=== PATIENT | female | born 1970 | race Caucasian/White ===

== ENCOUNTER 2020-04-28 10:51 | Day surgery (SDC) | payer OTHER, SELFPAY ==
[2020-04-24 20:28] VITALS: BMI 31.6
--- NOTE | 2020-04-27 09:23 | HO.ANESPROP2 ---
Documented by User: Korin Palomo 04/27/20 09:24 HPI - Anesthesia Eval Consult details Narrative: 49yo F for Colonoscopy PMFSH Past Medical History Medical History Asthma History of blood transfusion Migraine headache Surgical History Surgical History H/O exploratory laparotomy (2012) Hx of appendectomy (2018) Hx of tonsillectomy Previous back surgery (2013) Previous section (1993) Social History Social History Smoking Status: Never smoker Second Hand Smoke Exposure: No Use of substances other than those prescribed or required for medical reasons: No Advance Directives: No Advance Directives Information Provided: No Advance Directives on File: No Recently lost weight without trying: Unsure Meds Allergies Allergy/AdvReac Type Severity Reaction Status Date / Time cephalexin [From KEFLEX] Allergy Unknown RASH Verified 04/28/20 10:43 Home Medications Medication Instructions Recorded Confirmed Type albuterol sulfate [Ventolin HFA] 2 puff PO QID PRN 04/24/20 04/28/20 History fluticasone propionate [Flonase 2 spray INTRANASAL DAILY 04/24/20 04/24/20 History Allergy Relief] Exam Exam Date and Time: April 27, [id number] Height,Weight and Vital Signs: Height 5 ft 5 in Weight 86.183 kg Assessment and Plan Assessment Anesthesia Assessment: Chart Reviewed Documented by User: Blossom Dougherty 04/28/20 11:43 PMFSH Past Medical History Medical History Asthma History of blood transfusion Migraine headache Family History Family history of problems with anesthesia: No Surgical History Surgical History H/O exploratory laparotomy (2012) Hx of appendectomy (2018) Hx of tonsillectomy Previous back surgery (2013) Previous section (1993) History of Problems with Anesthesia: Yes (Difficulty breathing waking up from one of her surgeries) Social History Social History Smoking Status: Never smoker Second Hand Smoke Exposure: No Use of substances other than those prescribed or required for medical reasons: No Advance Directives: No Advance Directives Information Provided: No Advance Directives on File: No Recently lost weight without trying: Unsure Meds Allergies Allergy/AdvReac Type Severity Reaction Status Date / Time cephalexin [From KEFLEX] Allergy Unknown RASH Verified 04/28/20 10:43 Home Medications Medication Instructions Recorded Confirmed Type albuterol sulfate [Ventolin HFA] 2 puff PO QID PRN 04/24/20 04/28/20 History fluticasone propionate [Flonase 2 spray INTRANASAL DAILY 04/24/20 04/24/20 History Allergy Relief] Exam Height,Weight and Vital Signs: Vital Signs Temp Pulse Resp BP Pulse Ox 04/28/20 11:09 98 F 75 18 109/78 98 Airway Mallampati Class: I TM Dist: >3cm Neck ROM: Full Heart: RRR Lungs: OCC WHEEZE Assessment and Plan Assessment Anesthesia Assessment: Anesthesia Plan Discussed and Chart Reviewed Final Anesthetic Review NPO: Yes ASA Class: II Final Preanesthetic Review: No Changes in Pt Med Stat, Meds/Allgs Chart Reviewed, Consent Obtained/Reviewed and Anes Risks/Benef Reviewed Patient Risk: Low Procedure Risk: Low Anesthetic Plan Anesthetic Plan: MAC: Disposition: Standard PACU
[2020-04-28 11:09] VITALS: BP 109/78; PULSE 75; RESP 18; TEMP 36.6; O2SAT 98
[2020-04-28] MEDS: Lactated Ringers 1,000 ML 100 ML IVCONT (11:28)
[2020-04-28] MEDS: Albuterol Sulfate (0.083%) 2.5 MG/3 ML VIAL.NEB INHALE (11:39)
--- NOTE | 2020-04-28 11:40 | PC.NURSE ---
pt recieving resp tx nad
--- NOTE | 2020-04-28 12:00 | MHC.SHP ---
Pre-Procedural Eval Section A The patient is an INPATIENT: No Changes since office visit: No Cold of Flu in the past 2 weeks, No New Medical Problems, No Changes in Medication and No Patient answered all questions The History & Physical has been completed within 30 days and I have reviewed it.: Yes Section B Chief Complaint: Screening Allergies: Allergies Allergy/AdvReac Type Severity Reaction Status Date / Time cephalexin [From KEFLEX] Allergy Unknown RASH Verified 04/28/20 10:43 Plan Patient has been examined and remains a candidate for the planned procedure
[2020-04-28 12:38] VITALS: BP 96/55; PULSE 80; RESP 12; TEMP 36.2; O2SAT 98
--- NOTE | 2020-04-28 12:41 | PM.OP ---
Brief Operative Note Date of procedure: 04/28/20 Pre-op diagnosis: screening Post-op diagnosis: same (colon polyps) Procedure: colonosocpy Surgeon: Iker Jordan Anesthesia: MAC Estimated blood loss (mL): 2 Pathology: other (polyps x2) Condition: stable Disposition: PACU
[2020-04-28 12:53] VITALS: BP 103/62; PULSE 68; RESP 16; TEMP 36.2; O2SAT 100
--- NOTE | 2020-04-28 13:00 | OP_ITS ---
SURGEON: Iker Jordan MD INDICATIONS: Colon cancer screening. PREOPERATIVE DIAGNOSIS: POSTOPERATIVE DIAGNOSIS: PROCEDURE PERFORMED: Colonoscopy to the terminal ileum with biopsy. ESTIMATED BLOOD LOSS: COMPLICATIONS: ANESTHESIA: ASSISTANTS: SPECIMENS: MEDICATIONS: Monitored anesthesia care. DESCRIPTION OF PROCEDURE: History and physical performed. The risks and benefits of the procedure were explained to the patient. Informed consent was obtained. The patient was placed in a left lateral decubitus position. A digital rectal exam was performed and was found to be normal. The Olympus pediatric video colonoscope was introduced into the rectum and advanced to the cecum. The cecum was identified by transillumination, palpation, and identification of ileocecal valve. Examination was performed and the scope was removed. She tolerated the procedure well and was taken to recovery area in stable condition. FINDINGS: The terminal ileum was normal. The visualized colonic mucosa was within normal limits without evidence of masses or ulcers. The quality of the prep was good. Two polyps were identified and removed using a biopsy forceps. Both measured less than 5 mm. One was in the cecum on the ileocecal valve. The second was located at 25 cm from the anal verge. Both measured less than 5 mm. The quality of the prep was good. No other polyps were identified. Retroflexed examination showed internal hemorrhoids. External hemorrhoids were noted on withdrawal of the colonoscope. IMPRESSION: Colon polyps. RECOMMENDATION: Follow up the biopsy results. MD THOMAS Roman/MARIA LUISA / [id number]
--- NOTE | 2020-04-28 13:22 | HO.POSTANES ---
Post Anesthesia Evaluation Post Anesthesia Evaluation Vital Signs: Vital Signs Temp Pulse Resp BP Pulse Ox 04/28/20 12:53 97.1 F 68 16 103/62 100 04/28/20 12:38 97.1 F 80 12 96/55 L 98 04/28/20 11:09 98 F 75 18 109/78 98 Anesthesia: Monitored Mental Status: Awake Pain Control: Satisfactory Nausea/Vomiting: None Hydration: Adequate Anesthesia-Related Issues: No Anes. Related Issues
== END 2020-04-28 13:50 | disposition home or self-care (01) ==
PROVIDERS: PCP Internal Medicine; Visit Provider Internal Medicine Gastroenterology
PROC: 0DJD8ZZ Inspection of Lower Intestinal Tract, Via Natural or Artificial Opening Endoscopic (ICD-10-PCS; CPT 45378; principal; 2020-04-28 12:00)
DX: Z12.11 Encounter for screening for malignant neoplasm of colon (principal); D12.0 Benign neoplasm of cecum; K63.5 Polyp of colon; K64.8 Other hemorrhoids; K64.4 Residual hemorrhoidal skin tags; J45.909 Unspecified asthma, uncomplicated; Z88.1 Allergy status to other antibiotic agents; Z79.51 Long term (current) use of inhaled steroids
CPT/HCPCS: 45380; 88305; 94640

== ENCOUNTER 2020-05-18 15:10 | Emergency (ER) | payer OTHER, SELFPAY ==
--- NOTE | 2020-05-18 15:15 | ED.GENADULT ---
HPI - General Adult General Chief complaint: General Medical Stated complaint: flu like Time Seen by Provider: 05/18/20 15:13 Source: patient Mode of arrival: ambulatory Limitations: no limitations History of Present Illness HPI narrative: 49 y/o female with history of asthma is presenting with Related Data Home Medications Medication Instructions Recorded Confirmed albuterol sulfate [Ventolin HFA] 2 puff PO QID PRN 04/24/20 04/28/20 fluticasone propionate [Flonase 2 spray INTRANASAL DAILY 04/24/20 04/24/20 Allergy Relief] Allergies Allergy/AdvReac Type Severity Reaction Status Date / Time cephalexin [From KEFLEX] Allergy Unknown RASH Verified 04/28/20 10:43 PMFSH Past Medical History Medical History Asthma History of blood transfusion Migraine headache Surgical History H/O exploratory laparotomy (2012) Hx of appendectomy (2018) Hx of tonsillectomy Previous back surgery (2013) Previous section (1993) Social History Social History Smoking Status: Never smoker Second Hand Smoke Exposure: No Discharge Plan Discharge Prescriptions: No Action albuterol sulfate [Ventolin HFA] 90 mcg/actuation HFA aerosol inhaler 2 puff PO QID PRN (Reason: Shortness Of Breath) RF: 0 fluticasone propionate [Flonase Allergy Relief] 50 mcg/actuation [place],Suspension 2 spray INTRANASAL DAILY RF: 0
[2020-05-18 15:22] VITALS: BP 136/80; PULSE 68; RESP 18; TEMP 36.6; O2SAT 100; BMI 31.6
--- NOTE | 2020-05-18 15:25 | ED_ITS ---
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 Onset (ago): week(s) Location: head and face Severity: moderate Pain Consistency: intermittent Relieving factors: none Exacerbating factors: none Treatments prior to arrival: none Related Data Home Medications Medication Instructions Recorded Confirmed albuterol sulfate [Ventolin HFA] 2 puff PO QID PRN 04/24/20 04/28/20 fluticasone propionate [Flonase 2 spray INTRANASAL DAILY 04/24/20 04/24/20 Allergy Relief] Previous Rx's Medication Instructions Recorded amoxicillin-pot clavulanate 1 tab PO Q12H 10 Days #20 tab 05/18/20 [Augmentin] Allergies Allergy/AdvReac Type Severity Reaction Status Date / Time cephalexin [From KEFLEX] Allergy Unknown RASH Verified 05/18/20 15:21 Review of Systems Review of Systems: Constitutional: No Weight loss, No Fever, No Chills, No Night Sweats, No Fatigue, No Malaise ENT/Mouth: No Hearing loss, No Ear Pain, + Nasal Congestion, No Sinus Pain, No Hoarseness, No sore throat, + Rhinorrhea, No Swallowing Difficulty Eyes: No Eye Pain, No Swelling, No Redness, No Foreign Body, No Discharge, No Vision Changes Cardiovascular: No Chest Pain, No SOB, No Dyspnea on Exertion, No Orthopnea, No Edema, No Palpitations Respiratory: No Cough, No Sputum, No Wheezing, No Smoke Exposure, No Dyspnea Gastrointestinal: No Nausea, No Vomiting, No Diarrhea, No Constipation, No abdominal Pain Genitourinary: no irregular bleeding, No Dysuria, No Urinary Frequency, No Hematuria Musculoskeletal: No joint pain, No Myalgias, No Joint Swelling Skin: No Skin Lesions, No rash Neuro: No Weakness, No Numbness, No Paresthesias, No Loss of Consciousness, No Dizziness, No Headache Psych: No Anxiety/Panic, No Depression, No SI/HI/AH/VH, No Social Issues Heme/Lymph: No Bruising, No Bleeding,No Lymphadenopathy Endocrine: No Polyuria, No Polydipsia, No Temperature Intolerance Yes all other systems are reviewed and are negative [facility] Past Medical History Medical History Asthma History of blood transfusion Migraine headache Surgical History H/O exploratory laparotomy (2012) Hx of appendectomy (2018) Hx of tonsillectomy Previous back surgery (2013) Previous section (1993) Social History Social History Smoking Status: Never smoker Second Hand Smoke Exposure: No Advance Directives: No Advance Directives Information Provided: Yes Physical Exam Vital Signs: Vital Signs: Last Vital Signs Temp 97.8 F 05/18/20 15:22 Pulse 68 05/18/20 15:22 Resp 18 05/18/20 15:22 BP 136/80 05/18/20 15:22 Pulse Ox 100 05/18/20 15:22 Body Mass Index 31.6 Reviewed Const: General: cooperative and healthy appearing; No acute distress or intoxicated appearing Nutritional Appearance: average body habitus Orientation/consciousness: patient oriented x3 HENMT: Head: Yes normal to inspection Ears: hearing grossly normal bilaterally Mouth: other (Frontal maxillary sinuses tender to palpation.) Eyes: General: appearance normal, both eyes and all related structures Visual Higuera: normal visual higuera by confrontation Neck: Neck: Yes normal visual inspection and No tender Thyroid: Thyroid normal Chest: Chest palpation & inspection: normal inspection of the chest Resp: Effort & Inspection: normal respiratory effort Cardio: Jugular venous distension: no JVD GI: Inspection: Yes normal to inspection Percussion: Yes normal to percussion Auscultation: normal bowel sounds : General: Yes no CVA tenderness Back/Spine/Pelvis: Back: no CVA tenderness Skin: General skin exam: no rashes or lesions noted Neuro: General: patient oriented x3 Extrem: General: Yes normal to inspection Discharge Plan Discharge Clinical Impression: Acute upper respiratory infection, Sinusitis Patient Disposition: Home, Self-Care Instructions: Sinusitis (ED), Upper Respiratory Infection (ED) Additional Instructions: Take medication prescribed Remain out of work until cleared COVID test has been sent this may take up to 3-7 days results will call with results and if negative or positive Return if any concerns worsening symptoms Thank you Prescriptions: New amoxicillin-pot clavulanate [Augmentin] 875-125 mg tablet 1 tab PO Q12H 10 Days Qty: 20 RF: 0 No Action albuterol sulfate [Ventolin HFA] 90 mcg/actuation HFA aerosol inhaler 2 puff PO QID PRN (Reason: Shortness Of Breath) RF: 0 fluticasone propionate [Flonase Allergy Relief] 50 mcg/actuation [place],Suspension 2 spray INTRANASAL DAILY RF: 0 Referrals: Physician,Unknown [Primary Care Provider] - 5 days Stand Alone Forms: Work/School Release
== END 2020-05-18 16:01 | disposition home or self-care (01) ==
LOC: HO.ED 15:39
PROVIDERS: Nurse Practitioner Primary Care; Emergency Provider Emergency Medicine Emergency Medical Services
DX: J01.90 Acute sinusitis, unspecified (principal); Z79.899 Other long term (current) drug therapy; Z20.828 Contact with and (suspected) exposure to other viral communicable diseases
CPT/HCPCS: 87071; 87880; 99283; U0003

== ENCOUNTER 2021-10-21 12:11 | Emergency (ER) | payer OTHER, SELFPAY ==
--- NOTE | ~2021-10-21 | XR_ITS ---
EXAMINATION: XR LUMBOSACRAL SPINE CLINICAL INFORMATION: Low back pain, history of surgery. COMPARISON: None TECHNIQUE: Three views of the lumbosacral spine. FINDINGS: Mild lumbar levoscoliosis with apex at L3. Normal lumbar lordosis and spinal alignment. The vertebral bodies and intervertebral disc spaces are unremarkable. The soft tissues are unremarkable. Multiple calcific gallstones overlie the right upper quadrant. XR/XR lumbar spine 2-3V IMPRESSION: 1. Mild lumbar levoscoliosis without other significant abnormality. 2. Probable calcified gallstones overlying the right upper quadrant.
[2021-10-21 12:15] VITALS: BP 110/71; PULSE 80; RESP 20; TEMP 36.8; O2SAT 98; BMI 32.4
--- NOTE | 2021-10-21 14:09 | ED.BACK ---
HPI - Back Pain/Injury General Chief Complaint: Back Pain/Injury Stated Complaint: Lower Back Pain Time Seen by Provider: 10/21/21 12:20 Source: patient Mode of arrival: ambulatory Limitations: no limitations History of Present Illness HPI Narrative: 51 y/o female with history of chronic low back pain s/p surgery in 2013 who presents to the ER with worsening pain today after doing a lot of housework yesterday. She reports severe pain in her left lower back, worse with any movement or palpation of the area. It intermittently shoots down to her buttock and spasms with any movement. She denies any falls or specific injury. She has been taking ibuprofen with minimal relief. She denies any bladder or bowel incontinence, saddles paresthesias, numbness, tingling or weakness in the legs. MD elicited complaint: back pain Pertinent past history: prior back pain Onset (ago): day(s) (1) Timing: constant Severity: severe Pain scale (0-10): 9 Similar Symptoms Previously: Yes Quality: sharp, aching and spasming Location: left lower back Radiation: buttocks Exacerbating factors: movement and walking Relieving factors: immobilization Context: unknown Associated symptoms: difficulty walking Treatments prior to arrival: NSAIDS Work related injury: No Related Data Home Medications Medication Instructions Recorded Confirmed albuterol sulfate 90 mcg/actuation 2 puff PO QID PRN 04/24/20 04/28/20 aerosol inhaler (Ventolin HFA) fluticasone propionate 50 2 spray INTRANASAL DAILY 04/24/20 04/24/20 mcg/actuation nasal spray,suspension (Flonase Allergy Relief) Previous Rx's Medication Instructions Recorded amoxicillin 875 mg-potassium 1 tab PO Q12H 10 Days #20 tab 05/18/20 clavulanate 125 mg tablet (Augmentin) acetaminophen 650 mg 650 mg PO Q8H PRN #30 tab 10/21/21 tablet,extended release (Tylenol Arthritis Pain) cyclobenzaprine 10 mg tablet 10 mg PO TID PRN #14 tab 10/21/21 ibuprofen 600 mg tablet 600 mg PO Q8H PRN #20 tab 10/21/21 lidocaine 5 % topical patch 1 patch TOPICAL DAILY #15 ea 10/21/21 oxycodone 5 mg tablet 5 mg PO Q6H PRN #6 tab 10/21/21 Allergies Allergy/AdvReac Type Severity Reaction Status Date / Time cephalexin [From KEFLEX] Allergy Unknown RASH Verified 05/18/20 15:21 Review of Systems Review of Systems: Constitutional: No Fever, No Chills Cardiovascular: No Chest Pain, No SOB Gastrointestinal: No Nausea, No Vomiting, , No abdominal Pain Genitourinary: No Dysuria, No Urinary Frequency, No Hematuria Musculoskeletal: + joint pain, + Myalgias Skin: No Skin Lesions, No rash Neuro: No Weakness, No Numbness Psych: + Anxiety/Panic, No Depression Heme/Lymph: No Bruising PMFSH Past Medical History Medical History (Updated 10/21/21 @ 15:33 by BARB Mix) Asthma History of blood transfusion Migraine headache Ulna fracture Surgical History H/O exploratory laparotomy (2012) Hx of appendectomy (2018) Hx of tonsillectomy Previous back surgery (2013) Previous section (1993) Social History Social History Second Hand Smoke Exposure: No Advance Directives: No Advance Directives Information Provided: Yes Patient : No Physical Exam Vital Signs: Vital Signs: Last Vital Signs Temp 98.3 F 10/21/21 12:15 Pulse 80 10/21/21 12:15 Resp 20 10/21/21 12:15 BP 110/71 10/21/21 12:15 Pulse Ox 98 10/21/21 12:15 BMI result Body Mass Index 32.4 Appearance: Alert. Oriented X3. No acute distress. HEENT: normal inspection CVS: Normal heart rate and rhythm. Pulses normal. Respiratory: No respiratory distress. Skin: Skin warm and dry. Normal skin color. Normal skin turgor. No rashes. Extremities: normal inspection Neuro: Oriented X 3. No motor deficit. No sensory deficit. Course Course Course Narrative: 51 y/o female presenting to the ER with acute onset of low back pain on the left that started yesterday, no specific injury. Soft tissue tenderness and spasm on exam with +straight leg raise test. Will get XR given previous surgery. No red flag symptoms of LBP. She is asking to avoid narcotics, reports history of improvement with muscle relaxer in the past. Will give flexeril, toradol, tylenol and reassess. Reevaluation(s) Reevaluation #1: XR unremarkable. Patient continues to report severe pain in the left lower back with movement. Accepting to oxycodone now, will reassess. Reevaluation #2: Patient slow but steady on her feet. Pain improved. Ok for d/c home, work note and pain meds provided, encouraged to f/u with PCP this week. Stable for d/c. Critical Care Time Critical Care Time Critical Care Time: No Discharge Plan Discharge Clinical Impression: Strain of lumbar region Patient Disposition: Home, Self-Care Instructions: Low Back Strain (ED), Lower Back Exercises (ED) Additional Instructions: Your x-ray today was unremarkable. No bending, lifting or twisting. Use ice several times per day for 20 minutes at a time for the next 48 hours and then change to heat. Take medications as prescribed to help with pain and discomfort. Follow up with your Primary Care Doctor this week. If your pain worsens, if you develop new numbness, tingling, weakness, loss of function or incontinence call 911 or come back to the ER right away for evaluation. Prescriptions: New cyclobenzaprine 10 mg tablet 10 mg PO TID PRN (Reason: muscle spasm) Qty: 14 0RF ibuprofen 600 mg tablet 600 mg PO Q8H PRN (Reason: pain) Qty: 20 0RF lidocaine 5 % adhesive patch,medicated 1 patch topical DAILY Qty: 15 0RF Rx Instructions: leave on most painful area for up to 12 hrs oxycodone 5 mg tablet 5 mg PO Q6H PRN (Reason: severe pain (scale score 7-10)) Qty: 6 0RF acetaminophen [Tylenol Arthritis Pain] 650 mg tablet extended release 650 mg PO Q8H PRN (Reason: pain) Qty: 30 0RF No Action albuterol sulfate [Ventolin HFA] 90 mcg/actuation HFA aerosol inhaler 2 puff PO QID PRN (Reason: Shortness Of Breath) 0RF fluticasone propionate [Flonase Allergy Relief] 50 mcg/actuation [place],Suspension 2 spray INTRANASAL DAILY 0RF amoxicillin-pot clavulanate [Augmentin] 875-125 mg tablet 1 tab PO Q12H 10 Days Qty: 20 0RF Referrals: Nany Becker MD [Primary Care Provider] - (LBP) Stand Alone Forms: Work/School Release Interventions: ED Discharge Assessment Last Done: 10/21/21 17:07 Discharge Date/Time: 10/21/21 17:23
[2021-10-21] MEDS: Acetaminophen 325 MG TABLET 975 MG PO (14:30)
[2021-10-21] MEDS: Ketorolac Tromethamine 30 MG/ML VIAL IM (14:31)
[2021-10-21] MEDS: Cyclobenzaprine HCl 10 MG TABLET PO (14:31)
[2021-10-21] MEDS: Lidocaine 4 % Patch ADH..PATCH 1 PATCH TRANSDERMA (16:02)
[2021-10-21] MEDS: oxyCODONE HCl Immed Release 5 MG TABLET PO (16:03)
--- NOTE | 2021-10-21 16:50 | PC.NURSE ---
slow steady gait, moving all extremities, walking with to bathroom.
== END 2021-10-21 17:23 | disposition home or self-care (01) ==
PROVIDERS: Emergency Provider Emergency Medicine; PCP Internal Medicine
DX: S39.012A Strain of muscle, fascia and tendon of lower back, initial encounter (principal); J45.909 Unspecified asthma, uncomplicated; X58.XXXA Exposure to other specified factors, initial encounter; Y93.E9 Activity, other interior property and clothing maintenance; Y92.009 Unspecified place in unspecified non-institutional (private) residence as the place of occurrence of the external cause; Y99.9 Unspecified external cause status
CPT/HCPCS: 72100; 96372; 99284; J1885

== ENCOUNTER 2022-07-26 21:01 | Emergency (ER) | payer OTHER, SELFPAY ==
[2022-07-26 21:03] VITALS: BP 124/76; PULSE 66; RESP 20; TEMP 36.1; O2SAT 98; BMI 33.3
[2022-07-26 22:56] LABS: HIV AB/AG Nonreactive (Nonreactive); HIV Num 1 0.06 S/CO (0.00-0.99)
--- NOTE | 2022-07-26 22:56 | ED.GENADULT ---
HPI - General Adult General Chief complaint: General Medical Stated complaint: Needle stick/work inj Time Seen by Provider: 07/26/22 22:55 Source: patient Mode of arrival: ambulatory Limitations: no limitations History of Present Illness HPI narrative: 52-year-old female presents from work for evaluation of a needlestick. Onset (ago): hour(s) (Within the hour of arrival) Location: right and upper extremity (Index finger) Radiation: non-radiation Severity: mild Severity scale (1-10): 1 Associated symptoms: denies other symptoms Related Data Home Medications Medication Instructions Recorded Confirmed albuterol sulfate 90 mcg/actuation 2 puff PO QID PRN Shortness Of 04/24/20 04/28/20 aerosol inhaler (Ventolin HFA) Breath fluticasone propionate 50 2 spray intranasal DAILY 04/24/20 04/24/20 mcg/actuation nasal spray,suspension (Flonase Allergy Relief) Previous Rx's Medication Instructions Recorded amoxicillin 875 mg-potassium 1 tab PO Q12H 10 days #20 tabs 05/18/20 clavulanate 125 mg tablet (Augmentin) acetaminophen 650 mg 650 mg PO Q8H PRN pain #30 tabs 10/21/21 tablet,extended release (Tylenol Arthritis Pain) cyclobenzaprine 10 mg tablet 10 mg PO TID PRN muscle spasm #14 10/21/21 tabs ibuprofen 600 mg tablet 600 mg PO Q8H PRN pain #20 tabs 10/21/21 lidocaine 5 % topical patch 1 patch topical DAILY #15 ea 10/21/21 oxycodone 5 mg tablet 5 mg PO Q6H PRN severe pain (scale 10/21/21 score 7-10) #6 tabs Allergies Allergy/AdvReac Type Severity Reaction Status Date / Time cephalexin [From KEFLEX] Allergy Unknown RASH Verified 07/26/22 21:08 Review of Systems Review of Systems: Constitutional: No Fever, No Chills Cardiovascular: No Chest Pain, No SOB Respiratory: No Cough, No Dyspnea Musculoskeletal: positive right index pain Skin: No Skin lacerations, No rash Yes all other systems are reviewed and are negative [facility] Past Medical History Attestation statement: The following information was validated with the patient. Source: old records reviewed Medical History Asthma History of blood transfusion Migraine headache Ulna fracture Surgical History H/O exploratory laparotomy (2012) Hx of appendectomy (2018) Hx of tonsillectomy Previous back surgery (2013) Previous section (1993) Social History Social History Second Hand Smoke Exposure: No Advance Directives: No Advance Directives Information Provided: No Physical Exam ED Vital Signs: Vital Signs - 24 hr 07/26/22 21:03 Temperature 96.9 F Pulse Rate 66 Respiratory Rate 20 Blood Pressure 124/76 Pulse Oximetry 98 Oxygen Delivery Method Room Air BMI result Body Mass Index 33.3 Appearance: Alert. Oriented X3. No acute distress. Eyes: Pupils equal, round and reactive to light. Skin: Skin warm and dry. Normal skin color. Normal skin turgor. Neuro: No motor deficit. No sensory deficit. Cranial nerves 2-12 intact Course Course Course Narrative: 52-year-old female presents for needlestick while at work. 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 Patient presents for evaluation. Will test for hepatitis, update Tdap vaccine. 22:59 I do not feel antiretrovirals or post exposure kit would be beneficial for this patient as the needlestick has low likelihood of transmission with a low risk patient. Patient agrees with this plan and will follow up with work connection. Medications Administered Discontinued Medications Generic Name Dose Route Start Last Admin Trade Name Freq PRN Reason Stop Dose Admin Diphtheria/Tetanus/Acell Pertussis 0.5 ml 07/26/22 22:59 07/26/22 23:07 Diphth,Pertus(Acell),Tet Adult 0.5 Ml Syringe IM 07/26/22 23:00 0.5 ml .ONCE ONE Administration Medical Decision Making Differential Diagnosis Differential Diagnoses: The differential diagnosis associated with the presentation includes Needlestick Lab Data MDM Lab Attestation statement: I reviewed the patient's lab results. Labs: Lab Results 07/26/22 Range/Units 21:38 HIV 1&2 Ab/P24 Ag 4thGn Nonreactive (Nonreactive) External Record Review External record reviewed: Outpatient record Discharge Plan Discharge Clinical Impression: Accidental hypodermic needlestick injury Patient Disposition: Home, Self-Care Instructions: Needle Stick Injuries (ED) Additional Instructions: You were evaluated for a needle stick while at work. We updated your Tdap vaccine today. Your lab values are pending. Please follow up with work connection as scheduled. Thank you for choosing this emergency department for evaluation. Please follow-up with primary care physician as needed. Return to the emergency department for any new, concerning, or worsening symptoms. Prescriptions: No Action albuterol sulfate [Ventolin HFA] 90 mcg/actuation HFA aerosol inhaler 2 puff PO QID PRN (Reason: Shortness Of Breath) fluticasone propionate [Flonase Allergy Relief] 50 mcg/actuation Amanda,Suspension 2 spray INTRANASAL DAILY amoxicillin-pot clavulanate [Augmentin] 875-125 mg tablet 1 tab PO Q12H 10 Days Qty: 20 0RF cyclobenzaprine 10 mg tablet 10 mg PO TID PRN (Reason: muscle spasm) Qty: 14 0RF ibuprofen 600 mg tablet 600 mg PO Q8H PRN (Reason: pain) Qty: 20 0RF lidocaine 5 % adhesive patch,medicated 1 patch topical DAILY Qty: 15 0RF Rx Instructions: leave on most painful area for up to 12 hrs oxycodone 5 mg tablet 5 mg PO Q6H PRN (Reason: severe pain (scale score 7-10)) Qty: 6 0RF acetaminophen [Tylenol Arthritis Pain] 650 mg tablet extended release 650 mg PO Q8H PRN (Reason: pain) Qty: 30 0RF Interventions: ED Discharge Assessment Last Done: 07/26/22 23:10 Discharge Date/Time: 07/26/22 23:14
[2022-07-26] MEDS: Diphth,Pertus(ACell),Tet Adult 0.5 ML SYRINGE IM (23:07)
[2022-07-29 08:13] LABS: ~HepC Num1 0.11 S/CO (0.00-0.79); ~Hepatitis C Antibody Nonreactive (Nonreactive)
[2022-07-29 08:27] LABS: HBS Num1 > 1000.00 mIU/mL (0-7.99); HBc Num1 0.36 S/CO (0.00-0.79); HBsAGNum1 0.29 S/CO (0.00-0.99); Hepatitis B Core Antibody Nonreactive (Nonreactive); Hepatitis B Surface Antigen Negative (Negative); ~HepC Num1 0.13 S/CO (0.00-0.79); ~Hepatitis B Surface Antibody REACTIVE (Nonreactive)
[2022-07-29 08:28] LABS: Hepatitis C Ab Exposure Source NonReactive (Nonreactive)
== END 2022-07-26 23:14 | disposition home or self-care (01) ==
PROVIDERS: Emergency Provider Internal Medicine; PCP Internal Medicine
DX: S61.230A Puncture wound without foreign body of right index finger without damage to nail, initial encounter (principal); S60.410A Abrasion of right index finger, initial encounter; W26.8XXA Contact with other sharp object(s), not elsewhere classified, initial encounter; W45.8XXA Other foreign body or object entering through skin, initial encounter; Y93.9 Activity, unspecified; Y92.9 Unspecified place or not applicable; Y99.0 Civilian activity done for income or pay; Z20.828 Contact with and (suspected) exposure to other viral communicable diseases; Z79.899 Other long term (current) drug therapy; Z23 Encounter for immunization
CPT/HCPCS: 36415; 86803; 87389; 90471; 90715; 99282; 99284

== ENCOUNTER → 2022-07-29 08:58 | Outpatient (BNVA) | payer OTHER, SELFPAY | PROVIDERS: PCP Internal Medicine; Visit Provider Physician Assistant Medical | DX: Z77.21 Contact with and (suspected) exposure to potentially hazardous body fluids (principal) | CPT/HCPCS: 99203 ==

== ENCOUNTER 2023-03-14 06:48 | Outpatient (REF) | payer OTHER, SELFPAY ==
[2023-03-14 07:03] LABS: MANUAL DIFF FLAG NO
[2023-03-14 08:07] LABS: Basophils Percent Auto 0.4 % (0-2); Eosinophils Absolute Auto 0.1 X10*3/uL (0.0-0.4); Eosinophils Percent Auto 2.6 % (0-4); Hematocrit 41.1 % (37.0-47.0); Imm Gran Abs Auto 0.02 X10*3/uL (0.00-0.03); Imm Gran Pct Auto 0.4 % (0.0-0.4); Lymphocytes Absolute Auto 1.6 X10*3/uL (1.2-4.9); Lymphocytes Percent Auto 29.7 % (20-40); Mean Corpuscular HGB Conc 31.6 g/dl (31.0-35.0); Mean Corpuscular Hemoglobin 30.2 pg (27.0-33.0); Mean Corpuscular Volume 95.6 fL (80.0-98.0); Mean Platelet Volume 11.3 fL (9.4-12.3); Monocytes Absolute Auto 0.5 X10*3/uL (0.1-1.2); Monocytes Percent Auto 8.3 % (2-11); Neutrophils Absolute Auto 3.2 x10*3/uL (2.0-8.3); Neutrophils Percent Auto 58.6 % (45-73); Platelet Count 199 X10*3/uL (160-400); Red Cell Distribution Width 13.1 % (11.0-16.0); White Blood Count 5.4 X10*3/uL (4.8-10.8)
[2023-03-14 08:41] LABS: Alanine Aminotransferase 24 U/L (0-31); Albumin Level 4.2 g/dL (3.5-5.0); Alkaline Phosphatase 84 U/L (39-117); Anion Gap 10 (12-20); Aspartate Amino Transferase 22 U/L (5-31); Bilirubin Total 0.2 mg/dL (0.0-1.0); Blood Urea Nitrogen 19 mg/dL (9-16); Calcium 9.4 mg/dL (8.4-10.2); Carbon Dioxide 27 mmol/L (22-29); Chloride 109 mmol/L (96-108); Cholesterol 151 mg/dL (<200); Estimated Glomerular Filt Rate > 60; Glucose Random 100 mg/dL (60-115); HDL Cholesterol 51 mg/dL (>40); LDL Cholesterol Calculated 73 mg/dL (<100); Potassium 4.5 mmol/L (3.3-5.1); Sodium 141 mmol/L (135-145); Total Protein 7.2 g/dL (6.5-8.0); Triglycerides 136 mg/dL (<150)
== END 2023-03-14 06:49 | disposition home or self-care (01) ==
LOC: HO.LAB 06:48
PROVIDERS: PCP Internal Medicine; Visit Provider Internal Medicine
DX: E78.2 Mixed hyperlipidemia (principal); I10 Essential (primary) hypertension; M51.16 Intervertebral disc disorders with radiculopathy, lumbar region; Z68.34 Body mass index [BMI] 34.0-34.9, adult
CPT/HCPCS: 36415; 80053; 80061; 85025

== ENCOUNTER 2024-09-10 09:16 | Outpatient (REF) | payer OTHER, SELFPAY ==
[2024-09-10 11:43] LABS: Alanine Aminotransferase 24 U/L (0-31); Albumin Level 4.3 g/dL (3.5-5.0); Alkaline Phosphatase 84 U/L (39-117); Anion Gap 12 (12-20); Aspartate Amino Transferase 26 U/L (5-31); Bilirubin Total 0.5 mg/dL (0.0-1.0); Blood Urea Nitrogen 11 mg/dL (9-16); Calcium 9.5 mg/dL (8.4-10.2); Carbon Dioxide 26 mmol/L (22-29); Chloride 108 mmol/L (96-108); Cholesterol 210 mg/dL (<200); Estimated Glomerular Filt Rate > 60; Glucose Random 86 mg/dL (60-115); HDL Cholesterol 54 mg/dL (>40); LDL Cholesterol Calculated 119 mg/dL (<100); Potassium 4.2 mmol/L (3.3-5.1); Sodium 142 mmol/L (135-145); Total Protein 7.7 g/dL (6.5-8.0); Triglycerides 189 mg/dL (<150)
== END 2024-09-10 09:17 | disposition home or self-care (01) ==
LOC: HO.HHCL 09:16
PROVIDERS: Visit Provider Internal Medicine
DX: E78.00 Pure hypercholesterolemia, unspecified (principal); J45.909 Unspecified asthma, uncomplicated; Z00.00 Encounter for general adult medical examination without abnormal findings
CPT/HCPCS: 36415; 80053; 80061

== ENCOUNTER 2025-03-08 08:52 | Outpatient (REF) | payer OTHER, SELFPAY ==
--- OUTSIDE RECORDS SUMMARY | 2025-03-08 10:55 | XMS_ITS | Encounter Summary ---
Author Organization [employer] [facility] Address [address] [place] [address] Care Team Providers Care Ribbon Sweatband Operator Name Role Phone Unavailable Primary Care Provider Unavailabl e Encounter Details Date Type Department Care Team (Latest Contact Info) Description 09/21/2018 Abstract C CONVERSIONS Dental, Provider, DDS Social History Tobacco Use Types Packs/Day Years Used Date Smoking Tobacco: Never Assessed Comments Unknown Sex and Gender Information Value Date Recorded Sex Assigned at Female 04/22/2022 10:35 AM EDT Legal Sex Female 10:35 AM EDT Gender Identity Female 04/22/2022 10:35 AM EDT Sexual Orientation Straight 04/22/2022 10 :35 AM EDT documented as of this encounter Plan of Treatment Not on file documented as of this encounter Visit Diagnoses Not on filedocumented in this encounter
--- OUTSIDE RECORDS SUMMARY | 2025-03-08 10:55 | XMS_ITS | Clinical Summary ---
Author Organization [employer] Address [address] [place] [address] Care Team Providers Care Missile Mechanic Name Role Phone Unavailable Primary Care Provider Unavailabl e Immunizations Immunization Administration Dates Next Due Influenza, seasonal, injectable, preservative fr ee 03/03/2024 Social History Tobacco Use Types Packs/Day Years Used Date Smoking Tobacco: Never Assessed Comments Unknown Sex and Gender Information Value Date Recorded Sex Assigned at Female 04/22/2022 10:35 AM EDT Legal Sex Female 10:35 AM EDT Gender Identity Female 04/22/2022 10:35 AM EDT Sexual Orientation Straight 04/22/2022 10 :35 AM EDT Plan of Treatment Health Maintenance Due Date Last Done Comments CT Colonography 1969 Colonoscopy 1969 Colorectal Cancer Screening 1969 Depression Screening 1969 FIT DNA/Cologuard 1969 FIT 1969 FOBT 1969 HIV Screening 1969 SDOH Screening 1969 Sigmoidoscopy 1969 Disability Screening 1969 Alcohol/Substance Use Screening 1981 Tobacco Screening 1981 Hepatitis C Screening 1987 Hepatitis B Vaccines (1 of 3 - 19+ 3-dose series) 1988 Pap Smear 1990 Cervical Cancer Screening 1999 HPV/Cotest 1999 Mammogram 2009 COVID-19 Vaccine ( season) 2025 10/30/2020, 08/03/2020, 07/06/2020 Influenza Vaccine (#1) 2025 , 03/13/2023, 03/07/2022, Additional history exists DTaP/Tdap/Td Vaccines (2 - Td or Tdap) 07/26/2032 07/26/2022 RSV Patients and Patients Aged 60 years or older (1 - 1-dose 75+ series) 2044 Pneumococcal Vaccine: 50+ Years Completed 03/20/2023 Zoster Vaccines Completed 05/26/2023, 03/20/2023 HIB Vaccines Aged Out No longer eligi ble based on patient's age to complete this topic HPV Vaccines Aged Out No longer eligi ble based on patient's age to complete this topic Hepatitis A Vaccines Aged Out No long er eligible based on patient's age to complete this topic IPV Vaccines Aged Out No longer eligi ble based on patient's age to complete this topic Meningococcal B Vaccine Aged Out No l onger eligible based on patient's age to complete this topic Meningococcal Vaccine Aged Out No norma addison eligible based on patient's age to complete this topic RSV under 20 months Aged Out No longe r eligible based on patient's age to complete this topic Rotavirus Vaccines Aged Out No longer eligible based on patient's age to complete this topic Insurance [employer] PPO
--- OUTSIDE RECORDS SUMMARY | 2025-03-08 10:55 | XMS_ITS | Patient Health Record ---
Author Organization [facility] Address [address] [place] [address] Care Team Providers Care Research Environmental Engineer Name Role Phone Nany Becker Primary Care Provider Iker Levin Jr Unavailable Allergies Allergen (clinical drug ingredient) Drug/Non Drug Allergy documented on EMR Reaction Allergy Type Onset Date Status Keflex Unknown Drug Allergy Active Reason For Referral No Information Medications Medication SIG (Take, Route, Frequency, Duration) Notes Start Date End Date Status MiraLax (colon prep) 8.3 ounce ((238) grams mixed with Gatorade or Crystal Light orally begin at 5:00 p.m. the day before the procedure for 1 day 04/13/2020 Active Albuterol prn Active Multivitamin Active Immunizations Vaccine Route Administration Date Status Comme nts Influenza Unknown 02/22/2020 Administered Social History Tobacco Use: Social History Observation Description Date Details (start date - stop date) Never Smoker NA - NA Tobacco Use/Smoking Question Answer Notes Patient is a nonsmoker Alcohol Screen Question Answer Notes Did you have a drink containing alcohol in the p ast year? No Points 0 Interpretation Negative Problems Problem Type SNOMED Code ICD Code Onset Dates Problem Status W/U Status Risk Notes Problem 006865625 Colon cancer screening (Z12.11) Active confirmed Problem 684144155 Encounter for other preprocedural examination (Z01.818) Active confirmed Plan Of Treatment Future Test Test Name Order Date COLONOSCOPY 04/13/2020 Insurance Providers Payer Name Payer Address Payer Phone Subscriber Number Group Number Insured Name Patient Relationship to Insured Coverage Start Date Coverage End Date [facility] [address] [place] [phone] [id number] LATRICE GRIFFITH Self - patient is the insured Medical (General) History Medical History History ICD Code abnormal uterine bleeding asthma- since childhood endometriosis Surgical History Surgery Date(Month/Year) appendectomy due to endometriosis herniated disk repair etopic tonsillectomy c- section
[2025-03-08 12:31] LABS: Alanine Aminotransferase 22 U/L (0-31); Albumin Level 4.5 g/dL (3.5-5.0); Alkaline Phosphatase 83 U/L (39-117); Anion Gap 11 (12-20); Aspartate Amino Transferase 28 U/L (5-31); Blood Urea Nitrogen 13 mg/dL (9-16); Calcium 9.4 mg/dL (8.4-10.2); Carbon Dioxide 27 mmol/L (22-29); Chloride 107 mmol/L (96-108); Cholesterol 232 mg/dL (<200); Estimated Glomerular Filt Rate > 60; HDL Cholesterol 54 mg/dL (>40); Potassium 4.0 mmol/L (3.3-5.1); Sodium 141 mmol/L (135-145); Total Protein 7.5 g/dL (6.5-8.0); Triglycerides 186 mg/dL (<150)
== END 2025-03-08 08:53 | disposition home or self-care (01) ==
LOC: HO.HHCL 08:52
PROVIDERS: PCP Internal Medicine; Visit Provider Internal Medicine
DX: E78.2 Mixed hyperlipidemia (principal); M51.16 Intervertebral disc disorders with radiculopathy, lumbar region; R63.4 Abnormal weight loss
CPT/HCPCS: 36415; 80053; 80061

== ENCOUNTER 2025-06-02 08:42 | Outpatient (REF) | payer OTHER, SELFPAY ==
[2025-06-02 11:24] LABS: Alanine Aminotransferase 22 U/L (0-31); Albumin Level 4.5 g/dL (3.5-5.0); Alkaline Phosphatase 75 U/L (39-117); Anion Gap 9 (12-20); Aspartate Amino Transferase 30 U/L (5-31); Blood Urea Nitrogen 15 mg/dL (9-16); Calcium 9.2 mg/dL (8.4-10.2); Carbon Dioxide 27 mmol/L (22-29); Chloride 107 mmol/L (96-108); Cholesterol 223 mg/dL (<200); Estimated Glomerular Filt Rate > 60; HDL Cholesterol 62 mg/dL (>40); Potassium 4.1 mmol/L (3.3-5.1); Sodium 139 mmol/L (135-145); Total Protein 7.3 g/dL (6.5-8.0); Triglycerides 151 mg/dL (<150)
== END 2025-06-02 08:43 | disposition home or self-care (01) ==
LOC: HO.HHCL 08:42
PROVIDERS: PCP Internal Medicine; Visit Provider Internal Medicine
DX: Z00.00 Encounter for general adult medical examination without abnormal findings (principal); E78.2 Mixed hyperlipidemia; M43.06 Spondylolysis, lumbar region; R25.2 Cramp and spasm; Z86.0109 Personal history of other colon polyps
CPT/HCPCS: 36415; 80053; 80061